=== PATIENT | male | born 1970 | race African-American/Black ===

== ENCOUNTER 2020-08-30 18:31 | Emergency (ER) | payer OTHER, SELFPAY ==
--- NOTE | 2020-08-30 18:53 | W.ED.GENAD ---
Discharge Plan Disposition Patient Disposition: HOME Condition: Good Discharge Details Clinical Impression: Ankle sprain Primary Care Provider: [facility] Provider: Breanna Wheeler Home Meds and New Rx's Prescriptions: Continued lisinopril 20 mg Tablet 20 mg PO DAILY RF: 0 atenolol 25 mg Tablet RF: 0 Discharge Instructions Instructions: Ankle Sprain (ED) Additional Instructions: Your x-rays are reassuring today with no evidence of fracture. However, I am concerned you have an ankle sprain. Please encourage rest, ice, elevation. Tylenol and/or ibuprofen as needed for discomfort. Please avoid activities that cause increased discomfort. You may continue with splint while pain persist. If pain is not completely subside in the next 2 weeks please follow-up with your primary care. If you develop any new or worsening symptoms please seek care urgently once again. Medical Decision Making Patient is a pleasant 49-year-old male presenting today with chief complaint of right ankle and foot pain. He reports that prior to arrival he was coming down to have the back of a high truck after delivery when his glove slipped on the support rope and he fell landing on his right foot. Reports a rotational injury. Denies other injury the time of the accident. Did not strike his head, no loss of consciousness. Denies pain that radiates. On exam, patient appears to be in no acute distress. He has pain and swelling of the lateral malleolus. Also endorsing some discomfort anteriorly. No pain medially. Achilles is intact. Does have pain over the fifth metatarsal. 2+ distal pulses. No pain over the fibular head or neck. Plan for x-ray. Patient declined any analgesics. Patient is a PUI as he does reside in [facility]. FINDINGS: Bones/joints: Osseous mineralization is normal. There are no inflammatory osseous erosive changes. The joint spaces are maintained without degenerative changes. There is an 8 x 3 mm corticated ossified body along the dorsal aspect of the talus, suggesting sequela of old avulsion injury. No acute displaced fractures or subluxations are identified. There is mild calcification of the distal Achilles tendon just proximal to its insertion on the calcaneus suggesting mild calcific tendinosis. The plantar arch is maintained. Soft tissues: Normal. IMPRESSION: 1. Findings suggest old ununited avulsion fracture off the dorsal talus. 2. No acute displaced fractures or subluxations. 3. Mild calcific tendinosis of the distal Achilles tendon. FINDINGS: Bones/joints: Osseous mineralization is normal. There are no inflammatory osseous erosive changes. The ankle mortise is well aligned and well maintained without degenerative changes. There is an 8 x 3 mm corticated ossified body along the dorsal aspect of the talus, suggesting old ununited avulsion fracture fragment. No acute displaced fractures or subluxations are identified. The plantar arch is maintained. There is short linear calcification of the distal Achilles tendon just proximal to its insertion on the calcaneus suggesting mild calcific tendinosis. Soft tissues: Normal. IMPRESSION: 1. No acute displaced fractures or subluxations. 2. Findings suggest old ununited avulsion fracture fragment off the dorsal talus. 3. Mild calcific tendinosis of the distal Achilles tendon. I discussed the findings with the patient. I encouraged rest, ice, elevation. Tylenol and/or ibuprofen as needed for discomfort.. We treated with a lace up ankle brace to help with discomfort. The patient's been having some difficulty with ambulation secondary to pain, will send home with crutches as well. We discussed activities that she should avoid. Advise follow-up with primary care in the next 2 weeks for reevaluation. Patient does have a primary care locally for him. A disc of his images will be sent with him. All of his questions or concerns were addressed and he is in agreement this plan. [facility] General Mode of arrival: ambulatory. Date/Time Provider Initiated Documentation: 08/30/20 18:53. Limitations to Documentation: no limitations. Information obtained by: patient and RN notes reviewed. History of Present Illness 49 year old M presents to the emergency department with the chief complaint of right foot/ankle pain, described as moderate, with intensity rated at 7. Quality is described as aching, and is localized to the right and lower extremity. Patient reports no radiation. Patient started experiencing this minute(s) and it has been constant. Immobilization improves symptom(s), Movement worsens symptoms . Patient notes no other symptoms.. Patient did receive the following treatments prior to arrival, none Related Data Home Medications Medication Instructions Recorded Confirmed atenolol 08/30/20 lisinopril 20 mg PO DAILY 08/30/20 08/30/20 Allergies Allergy/AdvReac Type Severity Reaction Status Date / Time No Known Allergies Allergy Unverified 08/30/20 19:00 Review of Systems Constitutional Constitutional: Reports as per HPI, Denies chills, Denies fever(s), Denies headache(s) and Denies weakness ENT Ears, Nose, Mouth, and Throat: Denies headache(s) Cardiovascular Cardiovascular: Reports as per HPI Respiratory Respiratory: Reports as per HPI and Denies cough Musculoskeletal Musculoskeletal: Reports as per HPI and Denies tingling Integumentary/Breasts Skin/Breast: Reports as per HPI, Denies rash and Denies wounds Neurologic Neurologic: Reports as per HPI, Denies headache(s), Denies tingling, Denies paresthesias and Denies weakness [facility] Social History Smoking/Tobacco Use Status: Never Smoking risk assessment performed?: Yes Alcohol Intake: never Substance use type: does not use Do you feel safe at home: Yes Do you feel safe in your relationship?: Yes Exam Const General: cooperative, healthy appearing, comfortable, no acute distress, well developed and well groomed Nutritional Appearance: well nourished and obese Orientation: alert and awake Resp Effort & Inspection: normal respiratory effort, able to speak in complete sentences and no respiratory distress Cardio Rate: regular rate Rhythm: regular rhythm Skin General skin exam: no rashes or lesions noted Lesions: no lesions Rashes: no rashes Trauma: no lacerations or abrasions Neuro General: patient alert and patient awake Cognition: normal cognition Speech: speech normal Motor: muscle tone normal throughout Sensory Exam: no sensory deficits noted Extrem Ankle/foot/toe images: 1. Area of swelling and discomfort. No palpable deformity. Swelling quite minimal. No pain or deformity over the Achilles tendon. No pain medially. Patient does discomfort over the metatarsal. Otherwise, the foot is not painful. He is to distal pulses. No pain over the proximal fibula. No pain in the heel. Psych Appearance: grossly normal and well kempt Mental Status: mental status grossly normal Speech and Movement: speech and movement normal
[2020-08-30 18:54] VITALS: BP 138/80; PULSE 60; RESP 16; TEMP 36.5; O2SAT 98
--- NOTE | 2020-08-30 19:37 | DI.RAD_ITS ---
EXAM: XR ANKLE RT COMPLETE CLINICAL HISTORY: rolled coming out of high truck, lateral pain. TECHNIQUE: 2D digital imaging was performed. COMPARISON: No exams were available for comparison FINDINGS: There is no evidence of malleolar fracture or widening of the mortise. Talar dome appears unremarkab le. There is a corticated calcification measuring 8 x 3 millimeters off the dorsal aspect of the talus wh ich is probably an avulsion injury but does not have acute appearance. No obvious degenerative herrera es in the ankle and subtalar joints. No tarsal coalition evident. No osseous lesions. IMPRESSION: DATA REPOSITORY: RADIATION DOSE DELIVERED:
--- NOTE | 2020-08-30 19:38 | DI.RAD_ITS ---
EXAM: XR FOOT RT COMPLETE CLINICAL HISTORY: pain 5th metatarsal. TECHNIQUE: 2D digital imaging was performed. COMPARISON: No exams were available for comparison FINDINGS: No evidence of acute fracture or diastasis of the Lisfranc joint. A corticated ossified density is n oted dorsal to the talus which is most probably prior avulsion fracture. There does not appear to be prominent soft tissue swelling at this level. Bipartite medial sesamoid is noted subjacent to the g reat toe metatarsal head. Mild calcification at the insertion of the Achilles tendon posterior on th e calcaneus. No inferior calcaneal spur. Prominent navicular tuberosity which is developmental. IMPRESSION: Findings as above but no acute fracture evident. DATA REPOSITORY: RADIATION DOSE DELIVERED:
--- NOTE | 2020-08-30 20:03 | DI.VRAD_ITS ---
PROCEDURE INFORMATION: Exam: XR Right Foot Exam date and time: 08/30/2020 7:30 PM Age: 49 years old Clinical indication: Injury or trauma; Fall; Blunt trauma; Foot; Right TECHNIQUE: Imaging protocol: XR Right foot. Views: 3 or more views. COMPARISON: No relevant prior studies available. FINDINGS: Bones/joints: Osseous mineralization is normal. There are no inflammatory osseous erosive changes. The joint spaces are maintained without degenerative changes. There is an 8 x 3 mm corticated ossified body along the dorsal aspect of the talus, suggesting sequela of old avulsion injury. No acute displaced fractures or subluxations are identified. There is mild calcification of the distal Achilles tendon just proximal to its insertion on the calcaneus suggesting mild calcific tendinosis. The plantar arch is maintained. Soft tissues: Normal. IMPRESSION: 1. Findings suggest old ununited avulsion fracture off the dorsal talus. 2. No acute displaced fractures or subluxations. 3. Mild calcific tendinosis of the distal Achilles tendon. Dictated and Authenticated by: Errol Wood MD. Ordering:BRENDA Carlos MD
--- NOTE | 2020-08-30 20:06 | DI.VRAD_ITS ---
PROCEDURE INFORMATION: Exam: XR Right Ankle Exam date and time: 08/30/2020 7:30 PM Age: 49 years old Clinical indication: Injury or trauma; Fall; Blunt trauma; Ankle; Right TECHNIQUE: Imaging protocol: XR Right ankle. Views: 3 or more views. COMPARISON: No relevant prior studies available. FINDINGS: Bones/joints: Osseous mineralization is normal. There are no inflammatory osseous erosive changes. The ankle mortise is well aligned and well maintained without degenerative changes. There is an 8 x 3 mm corticated ossified body along the dorsal aspect of the talus, suggesting old ununited avulsion fracture fragment. No acute displaced fractures or subluxations are identified. The plantar arch is maintained. There is short linear calcification of the distal Achilles tendon just proximal to its insertion on the calcaneus suggesting mild calcific tendinosis. Soft tissues: Normal. IMPRESSION: 1. No acute displaced fractures or subluxations. 2. Findings suggest old ununited avulsion fracture fragment off the dorsal talus. 3. Mild calcific tendinosis of the distal Achilles tendon. Dictated and Authenticated by: Errol Wood MD. Ordering:BRENDA Carlos MD
[2020-08-30] MEDS: Ibuprofen 600 MG TAB PO (20:12)
== END 2020-08-30 20:31 | disposition home or self-care (01) ==
PROVIDERS: Emergency Provider Physician Assistant
DX: S93.401A Sprain of unspecified ligament of right ankle, initial encounter (principal); V68.4XXA Person boarding or alighting a heavy transport vehicle injured in noncollision transport accident, initial encounter; Y99.0 Civilian activity done for income or pay
CPT/HCPCS: 99284; 73610; 73630; 99283